=== PATIENT | male | born 1980 | race African-American/Black ===

== ENCOUNTER 2021-04-13 20:32 | Emergency (ER) | payer BC, OTHER ==
[~2021-04-13] VITALS: Ht 180.3 cm; Wt 111.1 kg
[2021-04-13 23:25] VITALS: BP 140/90
[2021-04-13] MEDS ORDERED: NORCO5 PO ×3 (23:30→23:32)
== END 2021-04-13 23:35 | disposition home or self-care (01) ==
LOC: ER 20:32
DX: S52.501A Unspecified fracture of the lower end of right radius, initial encounter for closed fracture (principal); F17.210 Nicotine dependence, cigarettes, uncomplicated; W18.39XA Other fall on same level, initial encounter; Y93.89 Activity, other specified; Y92.89 Other specified places as the place of occurrence of the external cause; Y99.8 Other external cause status